=== PATIENT | male | born 1995 | race Asian ===

== ENCOUNTER → 2019-12-20 09:54 | Outpatient (CLI) | payer OTHER, SELFPAY ==
--- NOTE | 2019-12-20 10:00 | DI.ECHO.S_ITS ---
[facility]---------+ [facility] +---------+ : : [address] : [address] : : : : [id number] : : : : Phone: [phone]+ Echocardiogram Report + + :Name: CHLOE LIMA Study Date: 12/20/2019 Height: 68 in : :[facility] Weight: 172 lb : : Gender: Male BSA: 1.9 m2 : :: 1995 Age: 24 yrs BP: 108/81 mmHg: :Reason For Study: TACHYCARDIA : :Ordering Physician: NATALEE, : :CARISA Performed By: Deborah Montes : :Referring: CARISA ALBRIGHT : + + Interpretation Summary Left and right ventricles appear normal in size but with significantly reduced systolic function in a global pattern without any focal wall motion abnormality although challenging to assess because of incessant tachycardia. Left ventricular ejection fraction is likely around 30 to 35%. Diastolic function cannot be assessed but CVP is likely 3 mmHg. Both atria are normal in size without any obvious structural abnormality. There is no significant valvular abnormality. The patient was in a narrow complex tachycardia with a prominent P wave at 133 to 175 bpm throughout the exam. Procedure: A two-dimensional transthoracic echocardiogram with color flow and Doppler was performed. The study quality was technically adequate. There is no prior echocardiogram noted for this patient. The patient was in sinus tachycardia with heart rates between 144-176 bpm during the exam. Left Ventricle: The left ventricle is normal in size and wall thickness. Left ventricular systolic function is moderate to severely reduced. The ejection fraction is estimated to be 35-40%. There is moderate global hypokinesis of the left ventricle. There are no focal wall motion abnormalities. Diastolic function could not be accurately assessed due to tachycardia. Right Ventricle: The right ventricle is normal size. Right ventricular systolic function is moderately reduced. Atria: Both atria are normal in size. There is no Doppler evidence for an interatrial shunt. Mitral Valve: The mitral valve is normal in structure and function. There is no mitral regurgitation noted. Aortic Valve: The aortic valve is trileaflet. The aortic valve opens well. There is no aortic valve stenosis. No aortic regurgitation is present. Tricuspid Valve: The tricuspid valve is not well visualized, but is grossly normal. No tricuspid regurgitation. Pulmonary artery pressures cannot be estimated because of the lack of a measurable TR jet velocity but the IVC suggests a CVP of around 3 mmHg. Pulmonic Valve: The pulmonic valve is not well visualized. There is no pulmonic valvular regurgitation. Great Vessels: The aortic root is normal size. The dimensions of the ascending aorta are normal. The IVC is of normal diameter and collapses greater than 50% with a sniff. This suggests a low right atrial pressure of 3 mm Hg. Pericardium/ Pleura There is no pericardial effusion. There is no pleural effusion. MMode/2D Measurements & Calculations LVIDd: 4.6 cm LVOT diam: 2.3 cm LVIDs: 3.7 cm Ao root diam: 3.2 cm FS: 20.3 % asc Aorta Diam: 2.9 cm EPSS: 0.71 cm Ao Arch Diam (Prox Trans): 2.5 cm IVSd: 0.88 cm LVPWd: 0.69 cm LV arreola. diameter/BSA (cm/m^2): 2.4 LV sys. diameter/BSA (cm/m^2): 1.9 LA A2 area: 15.6 cm2 RA long axis: 5.1 cm LA A4 area: 17.5 cm2 RA area: 15.8 cm2 LA length (vol): 5.5 cm RA vol: 41.3 ml LA vol: 41.7 ml RA : 21.5 ml/m2 LA vol index: 21.8 ml/m2 IVC diam: 1.6 cm RVD1 (basal): 3.1 cm Doppler Measurements & Calculations Ao V2 max: 77.1 cm/sec LVOT Max Vlaeriy: 69.0 cm/sec Ao V2 mean: 47.4 cm/sec LV V1 max P.9 mmHg Ao max P.4 mmHg LV V1 VTI: 9.2 cm Ao mean P.1 mmHg KALEY(I,D): 3.9 cm2 Ao V2 VTI: 10.2 cm KALEY(V,D): 3.8 cm2 sev ratio: 0.90 KALEY indexed to BSA (cm^2/m^2): 2.0 Med Peak E' Valeriy: 36.5 cm/sec PA V2 max: 61.4 cm/sec Lat Peak E' Valeriy: 15.5 cm/sec PA V2 mean: 43.6 cm/sec MV dec time: 0.10 sec PA mean P.86 mmHg PA pr(Accel): 43.0 mmHg SV(LVOT): 39.6 ml Reading Physician:12:32 PM
== END ==
PROVIDERS: PCP Specialist; Referring Provider Specialist; Visit Provider Specialist
DX: R00.0 Tachycardia, unspecified (principal)
CPT/HCPCS: 93306

== ENCOUNTER → 2020-05-08 14:47 | Outpatient (CLI) | payer OTHER, SELFPAY ==
--- NOTE | 2020-05-08 14:48 | DI.ECHO.S_ITS ---
Version: 1 Study ID: [id number] [place] [id number] Name: CHLOE LIMA Study Date: 05/08/2020, 3: 19 PM : 1995 BP: 145 / 84 mmHg Gender: Male Height: 68 in Age: 25 Years Weight: 170 lb BSA: 1.91 mA? Ordering: REYNALDO PETTIT PA-C Referring: Camilo Farrar Clinician: Deborah Montes Reason For Study: TACHYCARDIA, CARDIOMYOPATHY History: Summary Statements This is a limited study designed to evaluate wall motion and LV systolic function. Normal sinus rhythm. Normal LV size, wall thickness, wall motion and LV systolic function. EF is 55-60%. Grossly normal chamber sizes. Compared to prior study 11/2019, cardiomyopathy is no longer present. Regular narrow complex tachycardia is no longer present. EF is up from 30-35% to 55-60%. Procedure: A two-dimensional transthoracic echocardiogram with color flow and Doppler was performed in limited views only to assess ejection fraction and wall motion.. The study quality was technically adequate. Comparison is made with the echocardiogram of 12/20/2019. The patient was in sinus rhythm with heart rates between 89-95 bpm during the exam. Left Ventricle: Left ventricular ejection fraction is estimated to be 60 +/- 5%. The left ventricle is normal in size and wall thickness. Right Ventricle: The right ventricle is normal in size and function. Atria: There is no Doppler evidence for an interatrial shunt. The left atrial size is normal. Right atrial size is normal. Mitral Valve: Aortic Valve: Pulmonic Valve: Great Vessels: The IVC is of normal diameter and collapses greater than 50% with a sniff. This suggests a low right atrial pressure of 3 mm Hg. Pericardium/ Pleura: There is no pericardial effusion. There is no pleural effusion. 2D and M-Mode Measurements and Calculations LVIDd: 4.6 cm LVIDs: 3.1 cm IVSd: 0.92 cm LVPWd: 0.98 cm LV arreola. diameter/BSA (cm/m^2): 2.40 LV sys. diameter/BSA (cm/m^2): 1.65 RVD1 (basal): 3.3 cm IVC diam: 1.22 cm TAPSE: 2.18 cm LA A4 area: 14.4 greenhouse assistant? RA area: 11.4 greenhouse assistant? LA A2 area: 13.6 greenhouse assistant? RA long axis: 4.1 cm LA length (vol): 4.6 cm RA vol: 26.8 ml LA vol: 35.8 ml RA : 14.1 ml/mA? LA vol index: 18.8 ml/mA? Libby Batista M.D. Electronically signed by: Libby Batista M.D. 05/08/2020, 8: 47 PM
== END ==
PROVIDERS: PCP Specialist; Referring Provider Physician Assistant; Visit Provider Physician Assistant
DX: I47.1 Supraventricular tachycardia (principal); I42.8 Other cardiomyopathies
CPT/HCPCS: 93307